=== PATIENT | female | born 1955 | race Two or more races ===

== ENCOUNTER 2018-10-25 01:15 | Emergency (ER) | payer OTHER ==
[~2018-10-25] VITALS: Ht 160 cm; Wt 64.4 kg
[~2018-10-25 01:15] MED LIST: ENALAPRIL MALEA10 MG; HYDRALAZINE HCL25 MG; NORVASC10 MG; SIMVASTATIN20 MG; SYNTHROID175 MCG; ULTRAM50 MG PO
== END 2018-10-25 10:44 | disposition home or self-care (01) ==
LOC: ER 01:15
DX: R07.89 Other chest pain (principal)

== ENCOUNTER 2019-04-08 17:46 | Emergency (ER) | payer OTHER ==
[~2019-04-08] VITALS: Ht 160 cm; Wt 60.8 kg
== END 2019-04-08 22:26 | disposition home or self-care (01) ==
LOC: ER 17:46
DX: R51 Headache (principal)

== ENCOUNTER 2019-07-04 17:58 | Emergency (ER) | payer OTHER ==
[~2019-07-04] VITALS: Ht 157.5 cm; Wt 59.9 kg
[2019-07-05] MEDS ORDERED: ORPHENADRINE C100 MG PO (02:17)
[2019-07-05] MEDS ORDERED: ZYNCOF 20-400120 ML PO (02:17)
[2019-07-05] MEDS ORDERED: MOBIC15 MG PO (02:17)
[2019-07-05] MEDS ORDERED: ORASEP SPRAY30 ML MM (02:17)
== END 2019-07-05 02:23 | disposition home or self-care (01) ==
LOC: ER 17:58
DX: J06.9 Acute upper respiratory infection, unspecified (principal); K29.70 Gastritis, unspecified, without bleeding

== ENCOUNTER 2022-04-30 11:04 | Outpatient (CLI) | payer OTHER ==
[~2022-04-30 11:04] MED LIST changes: +MOBIC15 MG PO; +ORASEP SPRAY30 ML MM; +ORPHENADRINE C100 MG PO; +ZYNCOF 20-400120 ML PO
== END 2022-04-30 11:20 | disposition home or self-care (01) ==
LOC: RAD 11:04
PROVIDERS: ATTEND Obstetrics & Gynecology Gynecology
DX: Z12.31 Encounter for screening mammogram for malignant neoplasm of breast (principal); E04.1 Nontoxic single thyroid nodule; N60.19 Diffuse cystic mastopathy of unspecified breast; N61.1 Abscess of the breast and nipple; N60.12 Diffuse cystic mastopathy of left breast; N83.292 Other ovarian cyst, left side; N83.291 Other ovarian cyst, right side; I10 Essential (primary) hypertension

== ENCOUNTER 2022-04-30 13:16 | Outpatient (CLI) | payer OTHER | END 2022-04-30 13:18 | disposition home or self-care (01) | LOC: NUCLEAR 13:16 | PROVIDERS: ATTEND Internal Medicine Endocrinology, Diabetes & Metabolism | DX: M85.80 Other specified disorders of bone density and structure, unspecified site (principal) ==

== ENCOUNTER 2022-05-01 06:49 | Outpatient (CLI) | payer OTHER | END 2022-05-01 07:06 | disposition home or self-care (01) | LOC: LAB 06:49 | DX: E03.9 Hypothyroidism, unspecified (principal); D64.9 Anemia, unspecified; E11.9 Type 2 diabetes mellitus without complications; N30.00 Acute cystitis without hematuria; E78.2 Mixed hyperlipidemia; E21.4 Other specified disorders of parathyroid gland; R97.1 Elevated cancer antigen 125 [CA 125]; E55.9 Vitamin D deficiency, unspecified; Z12.11 Encounter for screening for malignant neoplasm of colon ==

== ENCOUNTER 2022-05-01 07:48 | Outpatient (CLI) | payer OTHER | END 2022-05-01 07:52 | disposition home or self-care (01) | LOC: SONOGRAMA 07:48 | PROVIDERS: ATTEND Obstetrics & Gynecology Gynecology | DX: R10.2 Pelvic and perineal pain (principal) ==

== ENCOUNTER 2022-05-14 11:39 | Outpatient (CLI) | payer OTHER | END 2022-05-14 11:42 | disposition home or self-care (01) | LOC: MRI 11:39 | PROVIDERS: ATTEND Orthopaedic Surgery | DX: M54.50 Low back pain, unspecified (principal) | CPT/HCPCS: 72148 ==

== ENCOUNTER 2022-05-29 07:08 | Outpatient (CLI) | payer OTHER | END 2022-05-29 07:20 | disposition home or self-care (01) | LOC: TOM 07:08 | PROVIDERS: ATTEND Urology | DX: R35.0 Frequency of micturition (principal); N28.1 Cyst of kidney, acquired | CPT/HCPCS: 74178; Q9965 ==

== ENCOUNTER 2022-05-29 08:39 | Outpatient (CLI) | payer OTHER | END 2022-05-29 08:41 | disposition home or self-care (01) | LOC: LAB 08:39 | PROVIDERS: ATTEND Urology | DX: R35.0 Frequency of micturition (principal); N28.1 Cyst of kidney, acquired ==

== ENCOUNTER 2022-06-05 10:26 | Outpatient (CLI) | payer OTHER | END 2022-06-05 10:27 | disposition home or self-care (01) | LOC: RAD 10:26 | PROVIDERS: ATTEND Physical Medicine & Rehabilitation | DX: S90.111A Contusion of right great toe without damage to nail, initial encounter (principal) ==

== ENCOUNTER 2023-01-01 08:06 | Outpatient (CLI) | payer OTHER | END 2023-01-01 08:13 | disposition home or self-care (01) | LOC: SONOGRAMA 08:06 | DX: M25.571 Pain in right ankle and joints of right foot (principal) ==

== ENCOUNTER 2023-05-12 15:50 | Outpatient (CLI) | payer OTHER | END 2023-05-12 16:01 | disposition home or self-care (01) | LOC: RAD 15:50 | DX: M47.812 Spondylosis without myelopathy or radiculopathy, cervical region (principal); M25.561 Pain in right knee; M79.671 Pain in right foot ==

== ENCOUNTER 2023-05-13 10:59 | Outpatient (CLI) | payer OTHER | END 2023-05-13 11:06 | disposition home or self-care (01) | LOC: SONOGRAMA 10:59 | DX: R22.41 Localized swelling, mass and lump, right lower limb (principal); M79.671 Pain in right foot ==

== ENCOUNTER 2023-05-19 15:54 | Outpatient (CLI) | payer OTHER | END 2023-05-19 16:01 | disposition home or self-care (01) | LOC: RAD 15:54 | DX: M25.561 Pain in right knee (principal) ==

== ENCOUNTER 2023-08-24 14:50 | Outpatient (CLI) | payer OTHER ==
[2023-08-24 15:43] LABS: CREATININE SERUM 0.62 mg/dL (0.55-1.02)
== END 2023-08-24 14:54 | disposition home or self-care (01) ==
LOC: LAB 14:50
DX: R35.0 Frequency of micturition (principal); N28.1 Cyst of kidney, acquired

== ENCOUNTER 2023-10-21 06:28 | Outpatient (CLI) | payer OTHER | END 2023-10-21 15:12 | disposition home or self-care (01) | LOC: MRI 06:28 | DX: T14.90XS Injury, unspecified, sequela (principal); R42 Dizziness and giddiness | CPT/HCPCS: 70551 ==

== ENCOUNTER 2024-03-17 07:35 | Outpatient (CLI) | payer OTHER | END 2024-03-17 07:41 | disposition home or self-care (01) | LOC: TOM 07:35 | PROVIDERS: ATTEND Internal Medicine | DX: N20.0 Calculus of kidney (principal) ==